=== PATIENT | male | born 1990 | race Caucasian/White ===

== ENCOUNTER 2018-10-22 02:08 | Emergency (ER) | payer OTHER ==
[2018-10-22 02:42] LABS: BILIRUBIN,TOTAL 0.3 mg/dL (0.0-1.0); CALCIUM 8.6 mg/dL (8.4-10.2); CREATININE, serum 0.99 mg/dL (0.66-1.25); POTASSIUM 3.5 mmol/L (3.4-5.0); TOTAL PROTEIN 6.7 gm/dL (6.4-8.2)
[2018-10-22 06:27] VITALS: BP 134/86; PULSE 90
== END 2018-10-22 06:29 | disposition home or self-care (01) ==
LOC: COL.ER 02:08
PROVIDERS: Emergency Medicine
DX: S00.31XA Abrasion of nose, initial encounter (principal); S00.412A Abrasion of left ear, initial encounter; F10.129 Alcohol abuse with intoxication, unspecified; X58.XXXA Exposure to other specified factors, initial encounter; Y90.8 Blood alcohol level of 240 mg/100 ml or more
CPT/HCPCS: J2405; J7030